=== PATIENT | male | born 1995 | race Hispanic/Latino ===

== ENCOUNTER 2022-07-27 13:14 | Inpatient (IN) | payer OTHER ==
[~2022-07-27] VITALS: Ht 177.8 cm; Wt 125.6 kg
[2022-07-27 14:41] LABS: BASOPHILS % 0.2 % (0.0-1.0); EOSINOPHILS % 0.6 % (0.0-6.0); LYMPHOCYTES # (AUTO) 1.1 (1.0-3.2); LYMPHOCYTES % 17.4 % (18.0-39.1); MEAN CORPUSCULAR HEMOGLOBIN 14.3 pg (28-32); MEAN CORPUSCULAR HGB CONC 23.5 g/dL (31-35); MONOCYTES # (AUTO) 0.5 (0.2-0.8); NEUTROPHILS # (AUTO) 4.8 (2.1-6.9); NEUTROPHILS % 74.3 % (38.7-80.0); PLATELET COUNT 449 x10e3/uL (140-360)
[2022-07-27 14:46] LABS: HEMOGLOBIN 4.3 g/dL (14.0-18.0)
[2022-07-27 14:47] LABS: HEMATOCRIT 18.3 % (38.2-49.6)
[2022-07-27 14:50] LABS: INR 1.05; PROTHROMBIN TIME 13.9 seconds (11.9-14.5)
[2022-07-27 15:00] LABS: ALANINE AMINOTRANSFERASE 16 IU/L (0-55); ALBUMIN 4.1 g/dL (3.5-5.0); ALBUMIN/GLOBULIN RATIO 1.1 (0.8-2.0); ALKALINE PHOSPHATASE 49 IU/L (40-150); ANION GAP 11.8 mmol/L (8-16); BLOOD UREA NITROGEN 12 mg/dL (7-26); BUN/CREATININE RATIO 14 (6-25); CALCIUM 9.1 mg/dL (8.4-10.2); CARBON DIOXIDE 25 mmol/L (22-29); CHLORIDE 103 mmol/L (98-107); CREATININE, SERUM 0.83 mg/dL (0.72-1.25); GLUCOSE 119 mg/dL (74-118); POTASSIUM 3.8 mmol/L (3.5-5.1); SODIUM 136 mmol/L (136-145)
[2022-07-27] MEDS ORDERED: SODIUM CHLORIDE FLUSH 10 ML SYR INJ PRN (15:30)
[2022-07-27] MEDS ORDERED: ONDANSETRON HCL INJ 2MG/ML 2ML 2 MG/ML VIAL IV PRN (15:30)
[2022-07-27 15:35] LABS: HYPOCHROMASIA MARKED; RBC MORPHOLOGY COMMENT ABNORMAL
[2022-07-27 15:36] LABS: MICROCYTOSIS SLIGHT; PLATELET ESTIMATE MODERATELY INCREASED; PLATELET MORPHOLOGY COMMENT NORMAL
[2022-07-27] MEDS ORDERED: SODIUM CHLORIDE 0.9% 500ML 500 ML ONE (18:03)
[2022-07-27 18:29] LABS: % IRON SATURATION 2 % (15-50); IRON 14 ug/dL (65-175); TOTAL IRON BINDING CAPACITY 706 ug/dL (261-478); TRANSFERRIN 504 mg/dL (174-364)
[2022-07-27] MEDS ORDERED: ACETAMINOPHEN 325 MG TAB PO ONE (18:30)
[2022-07-27 18:48] LABS: FERRITIN < 1.00 ng/mL (21.81-274.66)
[2022-07-27 20:00] VITALS: BP 126/69
[2022-07-27 21:00] VITALS: BP 126/69
[2022-07-27] MEDS ORDERED: DIPHENHYDRAMINE HCL 25 MG CAP PO PRN (21:45)
[2022-07-27] MEDS ORDERED: TYLENOL325 MG PO (22:45)
[2022-07-28] VITALS (9 sets, daily range): BP systolic 124–137; BP diastolic 59–77
[2022-07-28] MEDS: ACETAMINOPHEN 325 MG TAB PO PRN (01:29)
[2022-07-28 08:42] LABS: BASOPHILS % 0.2 % (0.0-1.0); EOSINOPHILS # (AUTO) 0.1 (0.0-0.4); EOSINOPHILS % 1.4 % (0.0-6.0); HEMATOCRIT 24.4 % (38.2-49.6); LYMPHOCYTES # (AUTO) 1.7 (1.0-3.2); LYMPHOCYTES % 34.2 % (18.0-39.1); MEAN CORPUSCULAR HEMOGLOBIN 17.7 pg (28-32); MEAN CORPUSCULAR HGB CONC 26.2 g/dL (31-35); MONOCYTES # (AUTO) 0.4 (0.2-0.8); MONOCYTES % 8.9 % (4.4-11.3); NEUTROPHILS # (AUTO) 2.7 (2.1-6.9); NEUTROPHILS % 55.1 % (38.7-80.0); PLATELET COUNT 354 x10e3/uL (140-360); RED BLOOD COUNT 3.62 x10e6/uL (4.3-5.7); RED CELL DISTRIBUTION WIDTH 25.7 % (11.7-14.4)
[2022-07-28 08:43] LABS: MEAN CORPUSCULAR VOLUME 67.4 fL (81-99)
[2022-07-28 08:45] LABS: HEMOGLOBIN 6.4 g/dL (14.0-18.0)
[2022-07-28] MEDS ORDERED: SODIUM CHLORIDE 0.9% 250ML 250 ML IV ONE (09:45)
[2022-07-28] MEDS ORDERED: IRON SUCROSE 100 MG in SODIUM CHLORIDE 0.9% 100 ML IV SCH (11:00)
[2022-07-28] MEDS ORDERED: PROPOFOL IV EMULSION 10 MG/ML 20 ML VIAL ONE (11:06)
[2022-07-28] MEDS ORDERED: LIDOCAINE HCL 2% LOCAL INJ 5 ML SDV VIAL INJ ONE (11:06)
[2022-07-28] MEDS ORDERED: HYOSCYAMINE SULFATE 0.5 MG/ML INJ ONE (11:06)
[2022-07-28] MEDS ORDERED: ONDANSETRON HCL INJ 2MG/ML 2ML 2 MG/ML VIAL ONE (11:08)
[2022-07-28] MEDS ORDERED: METOCLOPRAMIDE HCL 10 MG/2ML VIAL ONE (11:08)
[2022-07-28] MEDS ORDERED: POVIDONE IODINE 0.05% 0.05 % ML PO ONE (11:08)
[2022-07-28] MEDS: SENNA-S TABLET PO SCH (11:14)
[2022-07-28] MEDS ORDERED: FENTANYL CITRATE/PF 100MCG/2 ML INJ ONE (12:48)
[2022-07-28] MEDS ORDERED: SODIUM CHLORIDE 0.9% 250ML 250 ML ONE (13:15)
[2022-07-29] VITALS (7 sets, daily range): BP systolic 115–133; BP diastolic 63–78
[2022-07-29 05:16] LABS: BASOPHILS % 0.3 % (0.0-1.0); EOSINOPHILS # (AUTO) 0.2 (0.0-0.4); EOSINOPHILS % 2.6 % (0.0-6.0); HEMATOCRIT 26.4 % (38.2-49.6); LYMPHOCYTES # (AUTO) 2.2 (1.0-3.2); LYMPHOCYTES % 31.8 % (18.0-39.1); MEAN CORPUSCULAR HEMOGLOBIN 18.6 pg (28-32); MEAN CORPUSCULAR HGB CONC 26.5 g/dL (31-35); MEAN CORPUSCULAR VOLUME 70.2 fL (81-99); MONOCYTES # (AUTO) 0.6 (0.2-0.8); MONOCYTES % 8.1 % (4.4-11.3); NEUTROPHILS # (AUTO) 3.9 (2.1-6.9); NEUTROPHILS % 56.9 % (38.7-80.0); PLATELET COUNT 337 x10e3/uL (140-360); RED BLOOD COUNT 3.76 x10e6/uL (4.3-5.7); RED CELL DISTRIBUTION WIDTH 27.8 % (11.7-14.4)
[2022-07-29 06:52] LABS: ANISOCYTOSIS MODERATE; HYPOCHROMASIA MODERATE; OVALOCYTES FEW; PLATELET ESTIMATE ADEQUATE; PLATELET MORPHOLOGY COMMENT FEW LARGE; RBC MORPHOLOGY COMMENT ABNORMAL
[2022-07-29 06:53] LABS: MICROCYTOSIS MODERATE; TARGET CELLS FEW
[2022-07-29] MEDS: SENNA-S TABLET PO SCH (09:28)
[2022-07-29] MEDS ORDERED: SODIUM FERRIC GLUCONATE COMPLX 125 MG in SODIUM CHLORIDE 0.9% 100 ML IV SCH (15:00)
[2022-07-29] MEDS: CYANOCOBALAMIN 1,000 MCG TAB PO SCH (15:57)
[2022-07-29] MEDS: ACETAMINOPHEN 325 MG TAB PO PRN (21:17)
[2022-07-29] MEDS ORDERED: BISACODYL 5 MG TAB EC PO ONE (23:15)
[2022-07-29] MEDS ORDERED: CYANOCOBALAMIN INJ 1,000 MCG/ML VIAL IM ONE (23:45)
[2022-07-30] VITALS (7 sets, daily range): BP systolic 105–121; BP diastolic 71–83
[2022-07-30] MEDS ORDERED: BISACODYL 5 MG TAB EC PO ONE ×2 (00:30)
[2022-07-30] MEDS ORDERED: PEG (High)/E-LYTE SOLN 4,000 ML BTL PO ONE (05:00)
[2022-07-30 05:41] LABS: BASOPHILS % 0.3 % (0.0-1.0); EOSINOPHILS # (AUTO) 0.3 (0.0-0.4); EOSINOPHILS % 3.4 % (0.0-6.0); HEMATOCRIT 29.1 % (38.2-49.6); HEMOGLOBIN 7.6 g/dL (14.0-18.0); LYMPHOCYTES # (AUTO) 2.3 (1.0-3.2); LYMPHOCYTES % 30.9 % (18.0-39.1); MEAN CORPUSCULAR HEMOGLOBIN 18.5 pg (28-32); MEAN CORPUSCULAR HGB CONC 26.1 g/dL (31-35); MONOCYTES # (AUTO) 0.6 (0.2-0.8); MONOCYTES % 7.9 % (4.4-11.3); NEUTROPHILS # (AUTO) 4.3 (2.1-6.9); NEUTROPHILS % 57.2 % (38.7-80.0); PLATELET COUNT 375 x10e3/uL (140-360); RED CELL DISTRIBUTION WIDTH 29.3 % (11.7-14.4)
[2022-07-30 06:00] LABS: CALCIUM 9.7 mg/dL (8.4-10.2); CREATININE, SERUM 0.77 mg/dL (0.72-1.25)
[2022-07-30 06:51] LABS: ANISOCYTOSIS MARKED; HYPOCHROMASIA MODERATE; MICROCYTOSIS MODERATE; PLATELET ESTIMATE ADEQUATE; PLATELET MORPHOLOGY COMMENT NORMAL; RBC MORPHOLOGY COMMENT ABNORMAL
[2022-07-30 06:52] LABS: OVALOCYTES FEW; TARGET CELLS FEW
[2022-07-30] MEDS: SENNA-S TABLET PO SCH (09:00)
[2022-07-30] MEDS ORDERED: SODIUM FERRIC GLUCONATE COMPLX 125 MG in SODIUM CHLORIDE 0.9% 100 ML IV SCH ×2 (09:00→10:00)
[2022-07-30] MEDS: CYANOCOBALAMIN 1,000 MCG TAB PO SCH (09:00)
[2022-07-30] MEDS: CYANOCOBALAMIN INJ 1,000 MCG/ML VIAL IM SCH (09:33)
[2022-07-30] MEDS ORDERED: IOPAMIDOL 370 MG/ML 100 ML INFUS..BTL INJ ONE (14:21)
[2022-07-31] VITALS: BP 100/55
[2022-07-31 04:00] VITALS: BP 110/62
[2022-07-31 05:58] LABS: BASOPHILS % 0.1 % (0.0-1.0); EOSINOPHILS # (AUTO) 0.2 (0.0-0.4); EOSINOPHILS % 2.2 % (0.0-6.0); HEMATOCRIT 28.3 % (38.2-49.6); HEMOGLOBIN 7.5 g/dL (14.0-18.0); LYMPHOCYTES # (AUTO) 1.7 (1.0-3.2); LYMPHOCYTES % 20.4 % (18.0-39.1); MEAN CORPUSCULAR HGB CONC 26.5 g/dL (31-35); MEAN CORPUSCULAR VOLUME 71.6 fL (81-99); MONOCYTES # (AUTO) 0.8 (0.2-0.8); MONOCYTES % 9.6 % (4.4-11.3); NEUTROPHILS # (AUTO) 5.5 (2.1-6.9); NEUTROPHILS % 67.3 % (38.7-80.0); PLATELET COUNT 319 x10e3/uL (140-360); RED BLOOD COUNT 3.95 x10e6/uL (4.3-5.7); RED CELL DISTRIBUTION WIDTH 30.7 % (11.7-14.4)
[2022-07-31 06:37] LABS: ALBUMIN 3.8 g/dL (3.5-5.0); ALBUMIN/GLOBULIN RATIO 1.1 (0.8-2.0); ANION GAP 14.2 mmol/L (8-16); CALCIUM 9.3 mg/dL (8.4-10.2); CREATININE, SERUM 0.84 mg/dL (0.72-1.25); POTASSIUM 4.2 mmol/L (3.5-5.1)
[2022-07-31 08:07] VITALS: BP 109/69
[2022-07-31 08:36] VITALS: BP 109/69
[2022-07-31] MEDS: SENNA-S TABLET PO SCH (08:50)
[2022-07-31] MEDS: CYANOCOBALAMIN 1,000 MCG TAB PO SCH (08:50)
[2022-07-31] MEDS: CYANOCOBALAMIN INJ 1,000 MCG/ML VIAL IM SCH (08:52)
[2022-07-31 10:31] LABS: ANISOCYTOSIS SLIGHT; HYPOCHROMASIA SLIGHT; MICROCYTOSIS SLIGHT; PLATELET ESTIMATE ADEQUATE; PLATELET MORPHOLOGY COMMENT NORMAL
[2022-07-31] MEDS ORDERED: B-121000 MC1 PO (11:42)
[2022-07-31] MEDS ORDERED: PANTOPRAZOLE SO40 MG PO (11:42)
[2022-07-31] MEDS ORDERED: SENOKOT-S TABL1 EACH PO (11:47)
[2022-07-31] MEDS ORDERED: IRON325 M1 PO (11:48)
[2022-07-31 12:29] VITALS: BP 103/61
== END 2022-07-31 12:45 | disposition home or self-care (01) | DRG 812 ==
LOC: ER 13:29 → ERHOLD 15:31 → MED/SURG 19:32 → EDBD 07-28 08:19 → OBSVTOIN 07-28 08:19
PROVIDERS: ADMIT Family Medicine Adult Medicine; ATTEND Family Medicine Adult Medicine
PROC: 30233N1 Transfusion of Nonautologous Red Blood Cells into Peripheral Vein, Percutaneous Approach (ICD-10-PCS; 2022-07-27)
PROC: 0DB98ZX Excision of Duodenum, Via Natural or Artificial Opening Endoscopic, Diagnostic (ICD-10-PCS; principal; 2022-07-30 11:49)
PROC: 0DB78ZX Excision of Stomach, Pylorus, Via Natural or Artificial Opening Endoscopic, Diagnostic (ICD-10-PCS; 2022-07-30 11:49)
PROC: 0DBB8ZX Excision of Ileum, Via Natural or Artificial Opening Endoscopic, Diagnostic (ICD-10-PCS; 2022-07-30 11:49)
DX: D50.9 Iron deficiency anemia, unspecified (principal); K22.10 Ulcer of esophagus without bleeding; D75.839 Thrombocytosis, unspecified; K44.9 Diaphragmatic hernia without obstruction or gangrene; D51.9 Vitamin B12 deficiency anemia, unspecified; K25.9 Gastric ulcer, unspecified as acute or chronic, without hemorrhage or perforation; K29.70 Gastritis, unspecified, without bleeding; K64.8 Other hemorrhoids; E66.9 Obesity, unspecified; Z68.39 Body mass index [BMI] 39.0-39.9, adult; Z20.822 Contact with and (suspected) exposure to COVID-19; Z90.49 Acquired absence of other specified parts of digestive tract
CPT/HCPCS: 0223U; 36415; 43239; 45378; 45380; 71045; 74177; 80048; 80053; 82270; 82607; 82728; 82746; 83010; 83540; 83615; 84466; 85025; 85045; 85610; 86850; 86900; 86920; 86922; 87400; 88305; 88312; 88342; 93005; 99284; G0378; J1756; J1980; J2001; J2405; J2765; J2916; J3010; J3420; J7040; J7050; P9016; Q9967